=== PATIENT | female | born 1950 | race Caucasian/White ===

== ENCOUNTER 2019-10-05 13:26 | Outpatient (CLI) | payer MEDICARE, OTHER, SELFPAY ==
--- NOTE | 2019-10-05 13:39 | MM_ITS ---
WS: [id number] SCREENING DIGITAL MAMMOGRAM WITH CAD HISTORY: SCREENING COMPARISON: 07/21/2018, 07/02/2017 Bilateral CC and MLO views submitted. Computer aided detection analyzed. Breast composition: The breasts are extremely dense, which lowers the sensitivity of mammography. No suspicious masses, microcalcifications or architectural distortion. MM/[id number] IMPRESSION: BI-RADS: 1-Negative FOLLOW UP: 1 Year Follow-up
== END 2019-10-05 13:27 | disposition home or self-care (01) ==
LOC: RADSHAW 13:30
PROVIDERS: PCP Internal Medicine; Visit Provider Internal Medicine
DX: Z12.31 Encounter for screening mammogram for malignant neoplasm of breast (principal)
CPT/HCPCS: 77067

== ENCOUNTER 2019-10-13 06:00 | Outpatient (RCR) | payer MEDICARE, OTHER, SELFPAY | END 2019-10-29 23:59 | disposition home or self-care (01) | LOC: GPT 06:00 | PROVIDERS: PCP Internal Medicine; Referring Provider Orthopaedic Surgery; Visit Provider Orthopaedic Surgery | DX: M75.52 Bursitis of left shoulder (principal) | CPT/HCPCS: 97032; 97110; 97140; 97161; 97530 ==

== ENCOUNTER 2019-10-30 06:00 | Outpatient (RCR) | payer MEDICARE, OTHER, SELFPAY | END 2019-11-29 23:59 | disposition home or self-care (01) | LOC: GPT 06:00 | PROVIDERS: PCP Internal Medicine; Referring Provider Orthopaedic Surgery; Visit Provider Orthopaedic Surgery | DX: M24.512 Contracture, left shoulder (principal) | CPT/HCPCS: 97032; 97110; 97112; 97140; 97164; 97530 ==

== ENCOUNTER 2019-11-30 06:00 | Outpatient (RCR) | payer MEDICARE, OTHER, SELFPAY | END 2019-12-29 23:59 | disposition home or self-care (01) | LOC: GPT 06:00 | PROVIDERS: PCP Internal Medicine; Referring Provider Orthopaedic Surgery; Visit Provider Orthopaedic Surgery | DX: M24.512 Contracture, left shoulder (principal); S40.012D Contusion of left shoulder, subsequent encounter; X58.XXXD Exposure to other specified factors, subsequent encounter | CPT/HCPCS: 97032; 97110; 97140; 97164; 97530 ==

== ENCOUNTER 2019-12-30 06:00 | Outpatient (RCR) | payer MEDICARE, OTHER, SELFPAY | END 2020-01-29 23:59 | disposition home or self-care (01) | LOC: GPT 06:00 | PROVIDERS: PCP Internal Medicine; Referring Provider Orthopaedic Surgery; Visit Provider Orthopaedic Surgery | DX: S40.012A Contusion of left shoulder, initial encounter (principal); M24.512 Contracture, left shoulder; X58.XXXA Exposure to other specified factors, initial encounter | CPT/HCPCS: 97110; 97140; 97530 ==

== ENCOUNTER 2020-11-20 08:49 | Outpatient (CLI) | payer MEDICARE, OTHER, SELFPAY ==
--- NOTE | 2020-11-20 08:57 | MM_ITS ---
WS: [id number] BILATERAL SCREENING DIGITAL MAMMOGRAM WITH CAD HISTORY: SCREENING COMPARISON: 10/05/2019, 07/21/2018 Bilateral CC and MLO views submitted. Computer aided detection analyzed. Breast composition: The breasts are heterogeneously dense, which may obscure small masses. No suspici ous masses, microcalcifications or architectural distortion. MM/[id number] IMPRESSION: BI-RADS: 1-Negative FOLLOW UP: 1 Year Follow-up
== END 2020-11-20 08:50 | disposition home or self-care (01) ==
LOC: RADSHAW 08:56
PROVIDERS: PCP Internal Medicine; Visit Provider Internal Medicine
DX: Z12.31 Encounter for screening mammogram for malignant neoplasm of breast (principal)
CPT/HCPCS: 77067

== ENCOUNTER 2021-01-17 06:00 | Outpatient (RCR) | payer MEDICARE, OTHER, SELFPAY | END 2021-01-28 23:59 | disposition home or self-care (01) | LOC: GPT 06:00 | PROVIDERS: PCP Internal Medicine; Visit Provider Orthopaedic Surgery | DX: Z47.1 Aftercare following joint replacement surgery (principal); Z96.642 Presence of left artificial hip joint | CPT/HCPCS: 97110; 97112; 97116; 97161; 97530 ==

== ENCOUNTER 2021-01-29 06:00 | Outpatient (RCR) | payer MEDICARE, OTHER, SELFPAY | END 2021-02-27 23:59 | disposition home or self-care (01) | LOC: GPT 06:00 | PROVIDERS: PCP Internal Medicine; Visit Provider Orthopaedic Surgery | DX: Z47.1 Aftercare following joint replacement surgery (principal); Z96.642 Presence of left artificial hip joint | CPT/HCPCS: 97110; 97112; 97116; 97164; 97530 ==

== ENCOUNTER 2021-02-28 06:00 | Outpatient (RCR) | payer MEDICARE, OTHER, SELFPAY | END 2021-03-05 23:59 | disposition home or self-care (01) | LOC: GPT 06:00 | PROVIDERS: PCP Internal Medicine; Visit Provider Orthopaedic Surgery | DX: Z47.1 Aftercare following joint replacement surgery (principal); Z96.642 Presence of left artificial hip joint | CPT/HCPCS: 97110 ==

== ENCOUNTER 2021-12-13 07:54 | Outpatient (CLI) | payer MEDICARE, OTHER, SELFPAY ==
--- NOTE | 2021-12-13 08:02 | MM_ITS ---
WS: [id number] Bilateral screening 3D tomosynthesis digital mammogram, 12/13/2021 Clinical Data: SCREENING Comparison: 11/20/2020, 10/05/2019, 07/21/2018, 07/02/2017, 06/17/2017, 05/03/2016, 04/14/2015, 04/12/2014, 04/10, 03/26/2006. Findings: The breast parenchymal pattern shows extreme density. No spiculated masses or clustered calcification s are seen. There are no secondary signs of carcinoma. MM/[id number] Impression: 1. Negative bilateral mammogram unchanged. 2. Recommend annual screening mammograms. BIRADS: 1-Negative FOLLOW UP: 1 Year Follow-up The CAD bag checker was used.
== END 2021-12-13 07:55 | disposition home or self-care (01) ==
LOC: RAD 07:58
PROVIDERS: PCP Internal Medicine; Visit Provider Internal Medicine
DX: Z12.31 Encounter for screening mammogram for malignant neoplasm of breast (principal)
CPT/HCPCS: 77063; 77067

== ENCOUNTER 2023-01-17 10:39 | Outpatient (CLI) | payer MEDICARE, OTHER, SELFPAY ==
--- NOTE | 2023-01-17 10:44 | MM_ITS ---
WS: [id number] BILATERAL SCREENING DIGITAL TOMOSYNTHESIS MAMMOGRAM WITH CAD HISTORY: SCREENING COMPARISON: 12/13/2021 and 11/20/2020 Bilateral CC and MLO views with tomosynthesis and synthetic mammography submitted. Computer aided det ection analyzed. Breast composition: The breasts are heterogeneously dense, which may obscure small masses. No suspici ous masses, microcalcifications or architectural distortion. IMPRESSION: MM/[id number] BI-RADS: 1-Negative FOLLOW UP: 1 Year Follow-up
== END 2023-01-17 10:40 | disposition home or self-care (01) ==
PROVIDERS: Visit Provider Internal Medicine
DX: Z12.31 Encounter for screening mammogram for malignant neoplasm of breast (principal)
CPT/HCPCS: 77063; 77067